=== PATIENT | female | born 1995 | race Caucasian/White ===

== ENCOUNTER 2021-05-10 14:30 | Outpatient (CLI) | payer OTHER, SELFPAY ==
--- NOTE | ~2021-05-10 | US_ITS ---
EXAMINATION: US OB <=14 wk fetus w TV, US OB <= 14 wk fetus add gest EXAM DATE: 05/10/2021 15:44 (accession [id number]), 05/10/2021 15:45 (accession [id number]) INDICATION: Supervison Of Normal Supervision Of Normal . 1st trimester. TECHNIQUE: Pelvic obstetrical transabdominal and transvaginal twin gestation sonogram was performed by a technologist. There are multiple grayscale and Doppler images available for interpretation. Th ere are no earlier studies of this gestation for comparison. FINDINGS: Uterus is retroverted, measures 8.8 x 7.7 x 8.4 cm. There are 2 intrauterine gestation sacs identified, one has a live intrauterine gestation, heart rate 161 bpm, 4.7 cm crown-rump lengt h corresponding to estimated gestational age 11 weeks 3 days. There is a yolk sac in this gestation s ac. Sac separation between above fetus and Fetus B gestation, which is significantly smaller, posteriorly located with pole identified measuring 1.4 cm crown-rump length corresponding to estimated ges tational age 7 weeks 4 days. There are no heart tones in this smaller gestation as would be exp ected for a pole of this size. Small subchorionic hematoma measuring 9 mm in diameter by 5 mm in thickness. The right ovary is morph ologically normal, the left is not specifically identified. IMPRESSION: 1. Two intrauterine gestations with live gestation having heart rate 161 bpm, age by ultrasound 11 w eeks 3 days. 2. demise of the smaller gestation. 3. Small subchorionic hematoma. Reviewed, dictated and finalized at location A. BING INSTRUCTOR IMPRESSION: 1. Two intrauterine gestations with live gestation having heart rate 161 bpm, age by ultrasound 11 weeks 3 days. 2. demise of the smaller gestation. 3. Small subchorionic hematoma.
== END 2021-05-10 14:31 | disposition home or self-care (01) ==
PROVIDERS: Visit Provider Obstetrics & Gynecology
DX: O31.21X1 Continuing pregnancy after intrauterine death of one fetus or more, first trimester, fetus 1 (principal); O20.8 Other hemorrhage in early pregnancy; Z3A.11 11 weeks gestation of pregnancy
CPT/HCPCS: 76801; 76802; 76817

== ENCOUNTER 2021-06-29 15:54 | Outpatient (CLI) | payer OTHER, SELFPAY ==
--- NOTE | ~2021-06-29 | US_ITS ---
EXAMINATION: US OB /maternal detail DATE: 06/29/2021 17:09 INDICATION: survey TECHNIQUE: Multiple obstetric sonographic images performed. FINDINGS: There is an ultrasound dated 05/10/2021 There is a single living fetus in vertex presentation. The placenta is posterior without placenta pr evia. Placental margin is 4.5 cm to the cervix. Amniotic fluid volume is subjectively normal. cardiac activity and movement is noted with a heart rate of 154 beats per minute. The following anatomy was identified as normal: 4 chamber heart 3 vessel cord cord insertion kidneys urinary bladder stomach spine diaphragm ventricles cisterna magna cerebellum The following biometric data were obtained: BPD: 45mm corresponds to gestational age 19 weeks 4 days. Head circumference: 166 mm corresponds to gestational age 19 weeks 2 days. Abdominal circumference: 134 mm corresponds to gestational age 18 weeks 6 days. Femur length: 34 mm corresponds to gestational age 20 weeks 5 days. Head circumference to abdominal circumference ratio: 1.24 (normal range for expected gestational age is 1.08-1.26). Estimated weight: 306 grams +/- 46 grams using Hadlock method, greater than 97th percentile. IMPRESSION: 1: Single living intrauterine with an estimated gestational age of 18weeks 4days by initial ultrasound measurements, with an EDC of 11/26/2021 in vertex presentation. 2. Normal survey. Reviewed, dictated and finalized at location A. PROCESSING MACHINE OPERATOR IMPRESSION: 1: Single living intrauterine with an estimated gestational age of 18 weeks 4days by initial ultrasound measurements, with an EDC of 11/26/2021 in brent donavon presentation. 2. Normal survey.
== END 2021-06-29 15:55 | disposition home or self-care (01) ==
LOC: ANHIMG 15:57
PROVIDERS: Visit Provider Obstetrics & Gynecology
DX: Z34.91 Encounter for supervision of normal pregnancy, unspecified, first trimester (principal); Z3A.18 18 weeks gestation of pregnancy
CPT/HCPCS: 76805

== ENCOUNTER 2021-09-22 08:47 | Outpatient (CLI) | payer OTHER, SELFPAY ==
--- NOTE | ~2021-09-22 | US_ITS ---
EXAMINATION: US OB follow up DATE: 09/22/2021 10:02 INDICATION: Fundal height greater than expected for estimated gestational age. TECHNIQUE: Real-time ultrasound of the pelvis was performed. The interpreting radiologist was not pre sent for the study. COMPARISON: 06/29/2021 FINDINGS: There is a single living fetus in vertex presentation. The placenta is posterior. heart rate i s 135 beats per minute (bpm). The amniotic fluid index is 19.8 cm, which is normal (5th%-95%: 9.0-23 .4 cm at 30 weeks estimated gestational age). The following biometric data were obtained: BPD: 7.9 cm -> 31 weeks 4 days Head circumference: 28.3 cm -> 31 weeks 0 days Abdominal circumference: 27.7 cm -> 31 weeks 6 days Femur length: 6.1 cm -> 31 weeks 6 days These measurements are concordant. Head circumference to abdominal circumference ratio: 1.02 (normal range 0.96-1.15). Estimated weight: 1822 g (+/-) 273 g or 4 lbs. 0 oz. (+/-) 10 oz. IMPRESSION: 1. Single living fetus in vertex presentation with heart rate of 135 bpm. 2. Normal amniotic fluid index of 19.8 cm. 3. Estimated weight is 77th percentile by Hadlock criteria when 11/27/2021 is used as the estima leslee date of delivery (PAUL). Please correlate with clinical information or earlier ultrasounds for mos t accurate PAUL. Reviewed, dictated and finalized at location B. IMPRESSION: 1. Single living fetus in vertex presentation with heart rate of 135 bpm. 2. Normal amniotic fluid index of 19.8 cm. 3. Estimated weight is 77th percentile by Hadlock criteria when 11/27/2021 is used as the estimated date of delivery (PAUL). Please correlate with clinica l information or earlier ultrasounds for most accurate PAUL.
== END 2021-09-22 08:48 | disposition home or self-care (01) ==
PROVIDERS: Visit Provider Obstetrics & Gynecology
DX: O34.591 Maternal care for other abnormalities of gravid uterus, first trimester (principal); Z3A.31 31 weeks gestation of pregnancy
CPT/HCPCS: 76816

== ENCOUNTER → 2021-11-09 11:34 | Outpatient (CLI) | payer OTHER, SELFPAY ==
--- NOTE | ~2021-11-09 | US_ITS ---
EXAMINATION: US OB follow up DATE: 11/09/2021 12:02 INDICATION: Large for gestational age TECHNIQUE: Real-time transabdominal obstetric ultrasound. FINDINGS: Ultrasound dated 09/22/2021 There is a single living fetus in vertex presentation. The placenta is posterior without placenta pr evia. cardiac activity and movement is noted with a heart rate of 138 beats per minute. T he amniotic fluid volume is normal. CLARI measures 14.3 cm. The following biometric data were obtained: BPD: 92mm corresponds to gestational age 37 weeks 2 days. Head circumference: 321mm corresponds to gestational age 36 weeks 1 days. Abdominal circumference: 360mm corresponds to gestational age 39 weeks 6 days. Femur length: 73mm corresponds to gestational age 37 weeks 3 days. Estimated weight: 3539grams +/- 531grams, 85.5% by Hadlock method.] IMPRESSION: 1. Single living fetus in presentation with an estimated gestational age of 37 weeks 3 days by init itial ultrasound. Appropriate interval growth. 2. Normal placenta. Reviewed, dictated and finalized at location A. IMPRESSION: 1. Single living fetus in presentation with an estimated gestational age of 3 7 weeks 3 days by inititial ultrasound. Appropriate interval growth. 2. Normal placenta.
== END ==
PROVIDERS: PCP Obstetrics & Gynecology; Visit Provider Obstetrics & Gynecology
DX: O34.593 Maternal care for other abnormalities of gravid uterus, third trimester (principal); Z3A.37 37 weeks gestation of pregnancy
CPT/HCPCS: 76816

== ENCOUNTER 2023-08-26 09:07 | Outpatient (CLI) | payer BC, SELFPAY ==
--- NOTE | ~2023-08-26 | MR_ITS ---
EXAMINATION: MR brain/brain stem wo/w con DATE: 08/26/2023 10:04 INDICATION: Weakness and numbness of left lower leg. TECHNIQUE: Magnetic resonance imaging (MRI) of the brain and brainstem was performed without and with 12 mL MultiHance intravenous contrast. COMPARISON: None. FINDINGS: There is no intracranial hemorrhage, acute infarction, or abnormal intracranial mass lesion . The ventricles are normal in size. The mastoid air cells are normal. There is mild mucosal thickeni ng in the paranasal sinuses. There is an old blowout fracture of medial wall of right orbit. IMPRESSION: 1. Normal brain. Reviewed, dictated and finalized at location E. IMPRESSION: 1. Normal brain.
== END 2023-08-26 09:08 | disposition home or self-care (01) ==
LOC: ANHIMG 09:07
PROVIDERS: PCP Internal Medicine; Visit Provider Internal Medicine
DX: R53.1 Weakness (principal)
CPT/HCPCS: 70553; A9577

== ENCOUNTER 2023-10-24 09:12 | Outpatient (CLI) | payer BC, SELFPAY ==
--- NOTE | 2023-10-24 11:00 | NEURO_ITS ---
Impression: # Complains of numbness of left lower extremity along the lateral aspect below knee. # Normal motor/sensory Nerve Conduction Study. # Normal needle/EMG exam. # Clinical correlation recommended. Nerve Conduction Studies Anti Sensory Summary Table Stim Site NR Peak (ms) P-T Amp (?V) Site1 Site2 Delta-P (ms) Dist (cm) Aayush (m/s) Left Sup Fibular Anti Sensory (Ant Lat Mall) 14 cm 2.8 19.2 14 cm Ant Lat Mall 2.8 16.0 57 Right Sup Fibular Anti Sensory (Ant Lat Mall) 14 cm 2.9 12.4 14 cm Ant Lat Mall 2.9 16.0 55 Left Sural Anti Sensory (Lat Mall) Calf 3.5 4.0 Calf Lat Mall 3.5 16.0 46 Right Sural Anti Sensory (Lat Mall) Calf 3.3 11.7 Calf Lat Mall 3.3 16.0 48 Motor Summary Table Stim Site NR Onset (ms) O-P Amp (mV) Site1 Site2 Delta-0 (ms) Dist (cm) Aayush (m/s) Left Peroneal Motor (Vastus Med) Ankle 3.8 3.0 Popit Ankle 8.9 43.0 48 Popit 12.7 2.0 Right Peroneal Motor (Vastus Med) Ankle 3.3 2.5 Popit Ankle 8.0 43.0 54 Popit 11.3 2.2 Left Tibial Motor (Abd Johnson Brev) Ankle 3.6 4.5 Knee Ankle 8.1 43.0 53 Knee 11.7 3.2 Right Tibial Motor (Abd Johnson Brev) Ankle 3.9 7.1 Knee Ankle 8.3 42.0 51 Knee 12.2 6.6 F Wave Studies NR F-Lat (ms) L-R F-Lat (ms) Left Peroneal (Mrkrs) (EDB) 46.34 0.46 Right Peroneal (Mrkrs) (EDB) 45.88 0.46 Left Tibial (Mrkrs) (Abd Hallucis) 47.00 0.43 Right Tibial (Mrkrs) (Abd Hallucis) 46.57 0.43 EMG Side Muscle Nerve Root Ins Act Fibs Amp Dur Recrt Comment Right AntTibialis Dp Br Fibular L4-5 Nml Nml Nml Nml Nml Right Gastroc Tibial S1-2 Nml Nml Nml Nml Nml Right Fibularis Long Sup Br Fibular L5-S1 Nml Nml Nml Nml Nml Right Flex Dig Long Tibial L5-S2 Nml Nml Nml Nml Nml Right Ext Dig Brev Dp Br Fibular L5, S1 Nml Nml Nml Nml Nml Left AntTibialis Dp Br Fibular L4-5 Nml Nml Nml Nml Nml Left Gastroc Tibial S1-2 Nml Nml Nml Nml Nml Left Fibularis Long Sup Br Fibular L5-S1 Nml Nml Nml Nml Nml Left Flex Dig Long Tibial L5-S2 Nml Nml Nml Nml Nml Left Ext Dig Brev Dp Br Fibular L5, S1 Nml Nml Nml Nml Nml MTDD
== END 2023-10-24 09:13 | disposition home or self-care (01) ==
LOC: ANHNEURO 09:14
PROVIDERS: PCP Internal Medicine; Visit Provider Internal Medicine
DX: R53.1 Weakness (principal)
CPT/HCPCS: 95886; 95910